=== PATIENT | female | born 1980 | race Caucasian/White ===

== ENCOUNTER → 2020-02-29 | Outpatient (CLI) | payer OTHER ==
--- NOTE | 2020-02-29 21:32 | RAD ---
Examination: KNEE RIGHT 3V History: Reason: / Spl. Instructions: RIGHT KNEE PAIN, HX DISLOCATED PATELLA / History: Comparison/Correlation: None Findings: Total of 3 images of the right knee were obtained. Joint spaces are normal. No fracture or bone destruction. Soft tissues are unremarkable. No definite knee joint effusion. No degenerative change. Impression: Normal three-view x-rays right knee. Electronically signed by: Mathieu Barrera MD (02/29/2020 9:29 PM) [id number]
== END | disposition home or self-care (01) ==
LOC: DXRAD 16:13
PROVIDERS: ATTEND Family Medicine
DX: M25.561 Pain in right knee (principal)
CPT/HCPCS: 73562

== ENCOUNTER 2020-10-15 09:17 | Emergency (ER) | payer MEDICAID, OTHER ==
[~2020-10-15] VITALS: Ht 162.6 cm; Wt 117.0 kg
[2020-10-15 09:31] VITALS: BP 152/87
--- NOTE | 2020-10-15 09:31 | PHYS DOC ---
Adult General Chief Complaint Chief Complaint: FATIGUE HPI HPI Patient is a 39-year-old female who presents with concerns due to fatigue, decreased concentration, trouble mentating for the last couple days. She states that she thinks that she has serotonin syndrome. Reports that she has had serotonin syndrome in the past due that was caused because her sister was putting Stacey's wort in her Arturo-Aid for a long time without her noticing. She reports being seen by an unknown medical professional and being diagnosed with serotonin syndrome, she denies hospitalization at that time. Reports at that time she was told to avoid all the pharmacological and herbal culprits that were suspected of making her feel that way at the time. She also reports that her neighbor smokes a lot of cannabis and that makes her feel like she has serotonin syndrome. She denies fever, trouble swallowing, abdominal pain, chest pain, shortness of breath, nausea, vomiting, diarrhea, painful menstruation, changes to menstruation, trouble urinating, trouble defecating. She utilizes a lbuterol rescue inhaler for wheezing in addition to hydroxyzine but uses both sparingly, last use of either medication was over 2 weeks ago. She reports being restarted on control by her PCP but discontinued this 3 days ago as she thought it was contributing to her symptoms of mental fatigue and fogginess. She denies any other known ingestion of OTC medications and/or herbal supplements Review of Systems Review of Systems Fourteen body systems of review of systems have been reviewed. See HPI for pertinent positives and negative responses, other navarro all other systems are negative, non-pertinent or non-contributory Allergies Allergies Allergies Coded Allergies Type Severity Reaction Last Updated Verified Citric Acid Allergy Intermediate Diarrhea 10/29/13 Yes Stacey's wort Allergy Intermediate 10/29/13 Yes Physical Exam Physical Exam Constitutional: Well developed, well nourished, no acute distress, non-toxic appearance. HENT: Normocephalic, atraumatic, bilateral external ears normal, oropharynx moist, no oral exudates, nose normal. Eyes: PERRLA, EOMI, conjunctiva normal, no discharge. Neck: Normal range of motion, no tenderness, supple, no stridor. Cardiovascular: Heart rate regular, sinus rhythm, no murmurs rubs or gallops Lungs & Thorax: Bilateral breath sounds clear to auscultation Abdomen: Bowel sounds normal, soft, no tenderness, no masses, no pulsatile masses. Nonsurgical abdomen, no peritoneal signs Skin: Warm, dry, no erythema, no rash. Back: No tenderness, no CVA tenderness. Extremities: No tenderness, no cyanosis, no clubbing, ROM intact, no edema. Neurologic: Alert and oriented X 3, normal motor & sensory function, no focal deficits noted. Full neuro exam preformed on bedside cranial nerves 2 through 12 intact strength in the upper and lower extremity is symmetric and 5 out of 5 reflexes are 2 out of 4 in both upper and lower extremity no signs of cerebellar ataxia. Psychologic: Flat affect, depressed mood Current Patient Data Vital Signs Vital Signs Date Time Temp Pulse Resp B/P (MAP) Pulse Ox O2 Delivery O2 Flow Rate FiO2 10/15/20 09:31 98.3 72 16 152/87 (108) 100 Room Air Vital Signs Date Time Temp Pulse Resp B/P (MAP) Pulse Ox O2 Delivery O2 Flow Rate FiO2 10/15/20 09:31 98.3 72 16 152/87 (108) 100 Room Air Lab Results Laboratory Tests Test 10/15/20 10:00 Glucose (Fingerstick) 101 mg/dL EKG EKG EKG ordered and interpreted by myself at 1004 hrs. as sinus rhythm at 80 bpm, unremarkable intervals, no axis deviation, no acute ischemic findings, no STEMI Radiology/Procedures Radiology/Procedures [] Heart Score C/O Chest Pain: No HEART Score for Chest Pain: HEART Score for Chest Pain Response (Comments) Value History Slighlty/Non-Suspicious 0 Age < 45 0 Risk Factors No Risk Factors 0 Total 0 Risk Factors: Risk Factors: DM, Current or recent (<one month) smoker, HTN, HLP, family history of CAD, obesity. Risk Scores: Risk Factors: DM, Current or recent (<one month) smoker, HTN, HLP, family history of CAD, obesity. Course & Med Decision Making Course & Med Decision Making Vital signs stable. HPI and physical exam grossly nonconcerning for emergent and/or surgical findings [id number] glucose, EKG and Covid swab obtained I went in to reevaluate patient and she was crying, angry and ripping off all monitor leads in attempt to leave. She complains that no one is listening to her and stating that we are addressing her herbal ingestions I attempted to obtain additional information as she did disclose any other ingestions but states "I am not taking anything I told you!". She has full capacity. She is wanting to leave immediately I attempted to redirect patient and verbally de-escalate situation but failed to do so, she left department without discharge paperwork Manjeet Disclaimer Manjeet Disclaimer This electronic medical record was generated, in whole or in part, using a voice recognition dictation system. Departure Departure: Impression: Primary Impression: Fatigue Additional Impression: Person under investigation for COVID-19 Disposition: 01 HOME / SELF CARE / HOMELESS Condition: STABLE Referrals: ROB SILVA MD (PCP) Problem Qualifiers LEAH ARROYO DO Oct 15, 2020 09:31
--- NOTE | 2020-10-15 10:52 | EKG ---
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
== END 2020-10-15 10:25 | disposition home or self-care (01) ==
LOC: ER 09:17
DX: R53.83 Other fatigue (principal); Z20.822 Contact with and (suspected) exposure to COVID-19; Z91.018 Allergy to other foods; Z88.8 Allergy status to other drugs, medicaments and biological substances
CPT/HCPCS: 82947; 93005; 99284; C9803; U0003; U0005

== ENCOUNTER → 2021-09-09 | Outpatient (CLI) | payer MEDICAID ==
--- NOTE | 2021-09-09 13:40 | RAD ---
AP and Lateral Views of the Chest 09/09/2021 1:18 PM Indication: Reason: SOA / Spl. Instructions: / History: Comparison: None Findings: There is no focal consolidation or infiltrate identified. The cardiomediastinal silhouette is within normal limits. There is no evidence of pneumothorax or pleural effusion. No acute osseous a bnormalities are identified. Impression: No evidence of acute cardiopulmonary process. Electronically signed by: Sander Dubose MD (09/09/2021 1:38 PM) [id number]
[2021-09-09 13:52] LABS: BASO % 1 % (0-3); EOS # 0.3 x10^3/uL (0.0-0.7); EOS % 4 % (0-3); HEMATOCRIT 41.3 % (36.0-47.0); HEMOGLOBIN 13.9 g/dL (12.0-15.5); LYMPH # 2.1 x10^3/uL (1.0-4.8); LYMPH % 25 % (24-48); MEAN CORPUSCULAR HEMOGLOBIN 30 pg (25-35); MEAN CORPUSCULAR HGB CONC 34 g/dL (31-37); MEAN CORPUSCULAR VOLUME 90 fL (79-100); MONO # 0.5 x10^3/uL (0.0-1.1); MONO % 6 % (0-9); NEUT # 5.5 x10^3uL (1.8-7.7); NEUT % 64 % (31-73); PLATELET COUNT 371 x10^3/uL (140-400); RED BLOOD COUNT 4.62 x10^6/uL (3.50-5.40); RED CELL DISTRIBUTION WIDTH 13.1 % (11.5-14.5); WHITE BLOOD COUNT 8.6 x10^3/uL (4.0-11.0)
[2021-09-09 13:56] LABS: ALBUMIN/GLOBULIN RATIO 1.2 (1.0-1.7); CALCIUM 9.1 mg/dL (8.5-10.1); CREATININE 0.6 mg/dL (0.6-1.0); GFR 111.9; POTASSIUM 4.1 mmol/L (3.5-5.1); TOTAL BILIRUBIN 0.3 mg/dL (0.2-1.0); TOTAL PROTEIN 7.4 g/dL (6.4-8.2)
[2021-09-10 17:30] LABS: FREE T4 0.88 ng/dL (0.76-1.46); THYROID STIM HORMONE (TSH) 1.838 uIU/mL (0.358-3.740)
== END ==
LOC: RAD 13:10
PROVIDERS: ATTEND Family Medicine
DX: R06.02 Shortness of breath (principal); R00.0 Tachycardia, unspecified
CPT/HCPCS: 36415; 71046; 80053; 84439; 84443; 85025; 85379